=== PATIENT | male | born 2000 | race Native Hawaiian/Other Pacific Islander ===

== ENCOUNTER → 2018-04-08 | Outpatient (CLI) | payer OTHER | END | disposition short-term general hospital (02) | LOC: AMB 19:22 | DX: M79.605 Pain in left leg (principal); V86.39XA Unspecified occupant of other special all-terrain or other off-road motor vehicle injured in traffic accident, initial encounter; Y93.89 Activity, other specified; Y92.89 Other specified places as the place of occurrence of the external cause; Y99.8 Other external cause status | CPT/HCPCS: A0425; A0427 ==